=== PATIENT | male | born 1980 | race Two or more races ===

== ENCOUNTER 2016-06-21 22:44 | Emergency (ER) | payer OTHER ==
--- NOTE | 2016-07-05 21:14 | ER ---
ADMIT: 06/21/2016 RM/LOC: ER [facility] MR#: [id number] [id number] AURELIANO GUERRERO [address] [place] [address], [place] [address] Emergency Room Report SEX: M AGE: 35 : 1980 DATE: 06/21/2016 ADDENDUM: CHIEF COMPLAINT: Laceration. HISTORY OF PRESENT ILLNESS: This is a 35-year-old, who works for [employer]. He has a laceration to the distal right 4th finger. Dermabond was placed on the tip, and use Motrin or Tylenol for pain, ice. Follow up as needed. POLLY Rodriguez / Delvin Rojas MD / trudy JOB #: [id number] CC: Delvin Rojas MD, Attending Physician . [facility], [facility] Physician
== END 2016-06-21 23:35 | disposition home or self-care (01) ==
LOC: ER 22:44
PROC: 0HQFXZZ Repair Right Hand Skin, External Approach (ICD-10-PCS; principal; 2016-06-21)
DX: S61.214A Laceration without foreign body of right ring finger without damage to nail, initial encounter (principal); E11.9 Type 2 diabetes mellitus without complications; Z23 Encounter for immunization; W45.8XXA Other foreign body or object entering through skin, initial encounter